=== PATIENT | female | born 1980 | race Two or more races ===

== ENCOUNTER 2024-08-25 15:00 | Outpatient (RCR) | payer MEDICAID, SELFPAY ==
--- NOTE | 2024-08-11 10:38 | PTNOTE_ITS ---
PT OP Initial Eval Patient Information Outpatient Physical Therapy Treatment Date: 08/11/24 Visit Reasons: left carpal tunnel surgery Medical Diagnosis: G56.02 Treatment Dx #1: L hand pain Treatment Dx #2: L hand weakness Start of Care: 08/11/24 Date of Onset: 08/01/24 Smoking Status Smoking Status: Current every day smoker Cessation Counseling Provided: TABITHA was advised that quitting smoking is the single most important factor to protect the health of themselves and their family. Discussed the benefits of quitting smoking with patient. Encouraged patient to quit smoking and provided Cessation assistance materials and resources. Tobacco Use: Cigarette Years smoked: 20 Are you interested in quitting?: Yes Would you like additional Smoking Cessation Counseling?: No Initial Assessment Subjective: Pt is 44 yr old female s/p L CTS and reports weakness in the hand with gripping and pain. She has been massaging the scar and reports she drops things sometimes. PMH: HTN, pre-dM, high cholesterol Pt goal: to not drop things and get strength back in the hand. 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 Pt requires skilled therapy to meet goals and has good rehab potential. Short Term and Warehouse Assistant Goals 1. Ind with HEP 2. Improved fish house worker strength L hand to at least 48 lbs 3. Pt will not drop objects that weigh 5 lbs or less 4. Decreased scar TTP from mod to min Treatment Plan ?1. Manual therapy ? 2. Therex ? 3. Modalities as indicated, moist heat, ice, estim Frequency and Duration: 2x a week for 12 Rx sessions plus the evaluation Certification Dates: 08/11/24 to 11/11/24 Procedure Charges OP PT Eval Mod Complex 30 minutes: Yes
--- NOTE | 2024-08-17 10:00 | PT.ODAYNRPT ---
PT Outpatient Daily Note OP Daily Note Outpatient Physical Therapy Treatment Date: 08/17/24 Visit Reasons: left carpal tunnel surgery Subjective: Pt reports L hand is doing better, she has been massaging scar and palm notices scar is healing well. Objective: Please see flow sheet for ther ex list. Assessment: Pt completed interventions with fatigue but no pain to report. Plan: Continue with POC. Length of Time (minutes) of Treatment: 30 Minutes Procedure Charges Therapeutic Exercise 30 minutes: Yes
--- NOTE | 2024-08-19 13:54 | PTNOTE_ITS ---
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 Objective: Please see flow sheet for ther ex list. Assessment: Pt demonstrates improved tolerance for added interventions. Plan: Continue with poC. Length of Time (minutes) of Treatment: 30 Minutes Procedure Charges Therapeutic Exercise 30 minutes: Yes
--- NOTE | 2024-08-25 17:22 | PT.ODAYNRPT ---
PT Outpatient Daily Note OP Daily Note Outpatient Physical Therapy Treatment Date: 08/25/24 Visit Reasons: left carpal tunnel surgery Subjective: Doing HEP and HH chores at home with some hand pain but incision scar is less TTP. Objective: See F/S for therex MT: STM scar x5' Assessment: Good function of L hand with gripping. Min/mod TTP of scar. Plan: Continue per POC Length of Time (minutes) of Treatment: 30 Minutes Procedure Charges Therapeutic Exercise 30 minutes: Yes
== END 2024-09-05 23:59 | disposition home or self-care (01) ==
LOC: CPTX 15:00
DX: M79.642 Pain in left hand (principal); R53.1 Weakness; Z98.890 Other specified postprocedural states; Z71.6 Tobacco abuse counseling; F17.210 Nicotine dependence, cigarettes, uncomplicated; I10 Essential (primary) hypertension
CPT/HCPCS: 97110; 97162

== ENCOUNTER 2024-09-28 09:30 | Outpatient (RCR) | payer MEDICAID, SELFPAY ==
--- NOTE | 2024-09-08 16:45 | PT.ODAYNRPT ---
PT Outpatient Daily Note OP Daily Note Outpatient Physical Therapy Treatment Date: 09/08/24 Visit Reasons: LEFT HAND SURGERY Subjective: Doing HEP and HH chores at home with low hand pain and incision scar is less TTP. She wants to strengthen the hand. Objective: See F/S for therex Assessment: Good function of L hand with gripping. Plan: Continue per POC Length of Time (minutes) of Treatment: 30 Minutes Procedure Charges OP PT Eval Mod Complex 30 minutes: Yes Therapeutic Exercise 30 minutes: Yes
--- NOTE | 2024-09-14 14:59 | PT.ODAYNRPT ---
PT Outpatient Daily Note OP Daily Note Outpatient Physical Therapy Treatment Date: 09/14/24 Visit Reasons: LEFT HAND SURGERY Subjective: Pt reports L hand has been cramping up on her. Objective: Please see flow sheet for ther ex list. Assessment: Performed MT mert dixon, pt tolerated well. Plan: Continue with pOC. Length of Time (minutes) of Treatment: 30 Minutes Procedure Charges Therapeutic Exercise 30 minutes: Yes
--- NOTE | 2024-09-28 13:44 | PTNOTE_ITS ---
PT OP Progress/Discharge Note Date of Service: 09/28/24 Progress Note/DC Note Progress Note/Discharge Note: DC Note Patient Information Visit Reasons: LEFT HAND SURGERY Service Continue Service or Discharge: Discharge Discharge Date: 09/28/24 Status Subjective: Doing HEP and HH chores at home with low to no hand pain and incision scar is not TTP. Pt says she can lift more than 5 lbs with L hand and can even lift grandchild. She wants to D/C from therapy because she has met her goals. 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 Pt has returned to doing HH chores and ADL's without L hand pain and has met the goal of scar not being TTP. Plan: D/C with HEP Procedure Charges Therapeutic Exercise 30 minutes: Yes
== END 2024-10-05 23:59 | disposition home or self-care (01) ==
LOC: CPTX 09:30
DX: M79.642 Pain in left hand (principal); R53.1 Weakness; Z98.890 Other specified postprocedural states; I10 Essential (primary) hypertension
CPT/HCPCS: 97110; 97162

== ENCOUNTER 2024-10-18 08:39 | Outpatient (RCR) | payer MEDICAID, SELFPAY ==
--- NOTE | 2024-10-18 09:07 | PT.OIERPT ---
PT OP Initial Eval Patient Information Outpatient Physical Therapy Treatment Date: 10/18/24 Visit Reasons: right knee acl tear Medical Diagnosis: S83.511A Start of Care: 10/18/24 Date of Onset: 10/04/23 Smoking Status Smoking Status: Light (< 1 pack/day) Cessation Counseling Provided: TABITHA was advised that quitting smoking is the single most important factor to protect the health of themselves and their family. Discussed the benefits of quitting smoking with patient. Encouraged patient to quit smoking and provided Cessation assistance materials and resources. Tobacco Use: Cigarette Years smoked: 30 Are you interested in quitting?: Yes Would you like additional Smoking Cessation Counseling?: No Initial Assessment Subjective: Pt is 44 yr old female who fell in the shower and felt a pop in the R knee in September 2023. Since then the knee gives out or jonel and she falls. The last time she fell was over the weekend. She has fallen getting out of the car. PMH: HTN Imaging: MRI shows complete ACL tear, Xray shows increased medial joint space Pt goal: to not fall Objective: R knee ArOM: Flexion: 124 deg Extension: -5 deg with pain SLR: 90 deg Strength MMT: Extension: 4/5 HS: 4-/5 Squats: medial knee pain with mini squat Anterior drawer: negative but pt was guarding valgus stress: positive for gapping Assessment: Pt presents with valgus gapping consistent with medial instability. The MRI shows complete ACL tear which may likely be inhibiting strength as she is very hesitant to squat more than a few degrees of knee flexion for fear of the knee buckling. Pt will not likely benefit from therapy at this time and has poor rehab potential to meet goals due to chronicity and medial instability. Short Term and [facility] Goals Eval and D/C Treatment Plan Eval and D/C Certification Dates: 10/18/24 to 11/18/24 Procedure Charges OP PT Eval Mod Complex 30 minutes: Yes
== END 2024-11-05 23:59 | disposition home or self-care (01) ==
LOC: CPTX 08:39
PROVIDERS: PCP Orthopaedic Surgery; Referring Provider Orthopaedic Surgery; Visit Provider Orthopaedic Surgery
DX: M25.561 Pain in right knee (principal); S83.511D Sprain of anterior cruciate ligament of right knee, subsequent encounter; W18.2XXD Fall in (into) shower or empty bathtub, subsequent encounter; Z71.6 Tobacco abuse counseling; F17.210 Nicotine dependence, cigarettes, uncomplicated; I10 Essential (primary) hypertension; Z91.81 History of falling
CPT/HCPCS: 97162

== ENCOUNTER → 2025-01-12 | Outpatient (CLI) | payer MEDICAID, SELFPAY ==
--- NOTE | 2025-01-12 09:00 | XR_ITS ---
Examination: Screening digital mammography, bilateral Computer aided detection 3-D breast Tomosynthesis, bilateral Date and time of exam: January 12, 2025 0917 hours Compared to mammograms dating to November 23, 2017 Indication: Screening Technique: Nonmagnified MLO, CC views of the breasts to been obtained, reconstructed from 3-D Tomosynthesis images. R2 computer aided detection program utilized for evaluation of suspicious masses and/or abnormal calcifications. 3-D Tomosynthesis images obtained. Findings: Scattered areas of fibroglandular density. Benign calcifications No interval suspicious masses Impression: BI-RADS category II: Benign Findings. Recommend 1 year follow-up mammogram.
== END | disposition home or self-care (01) ==
LOC: CDIM 08:57
PROVIDERS: PCP Nurse Practitioner Family; Referring Provider Nurse Practitioner Family; Visit Provider Nurse Practitioner Family
DX: Z12.31 Encounter for screening mammogram for malignant neoplasm of breast (principal); R92.323 Mammographic fibroglandular density, bilateral breasts; R92.1 Mammographic calcification found on diagnostic imaging of breast
CPT/HCPCS: 77063; 77067